=== PATIENT | female | born 1980 | race Caucasian/White ===

== ENCOUNTER → 2016-05-30 | Outpatient (CLI) | payer OTHER ==
--- NOTE | 2016-05-30 10:08 | US ---
Ultrasound of the Abdomen Limited History: R16.0, hepatomegaly. Two hepatic lesions on prior ultrasound. Comparison: Ultrasound March 2015. Findings: Gallbladder: No shadowing calculi, wall thickening, or pericholecystic fluid. Common bile duct is 2 m m in diameter which is normal. Liver: Liver measures 12 cm in length. Near the right lobe of the liver anterior segment, there is a 1.6 x 1.5 x 1.4 cm hyperechoic lesion which previously measured 1.5 x 1.4 x 1.4 cm demonstrating smo oth margins and stability. In the right lobe posterior segment more inferiorly, there is a second hyp erechoic smooth well-defined 1.1 x 0.9 x 0.9 cm lesion previously measuring 0.9 x 0.7 x 0.7 cm which demonstrates minimal if any change in size. Renal: Right kidney measures 9 x 5 x 5 cm without hydronephrosis. Pancreas: Homogeneous without peripancreatic fluid. Aorta: Visualized upper abdominal aorta demonstrates no aneurysm. Impression: 1. No cholelithiasis or biliary ductal dilation. 2. Two hyperechoic lesions in the right lobe of the liver measuring up to 1.6 cm in size without sign ificant interval change since March 2015 probably representing benign hemangiomata. 3. Recommend follow up ultrasound imaging in one year to ensure stability.
== END ==
LOC: CIMAGING 08:42
PROVIDERS: ATTEND Family Medicine
DX: R93.2 Abnormal findings on diagnostic imaging of liver and biliary tract (principal)
CPT/HCPCS: 76705-PO

== ENCOUNTER → 2018-01-07 | Outpatient (CLI) | payer OTHER | LOC: FIMAGING 11:05 | PROVIDERS: ATTEND Family Medicine | DX: M79.674 Pain in right toe(s) (principal); W55.12XA Struck by horse, initial encounter; Y93.K9 Activity, other involving animal care ==

== ENCOUNTER → 2018-08-20 | Outpatient (CLI) | payer OTHER | LOC: BMCIMAGING 12:43 | PROVIDERS: ATTEND Obstetrics & Gynecology Gynecology | DX: Z12.31 Encounter for screening mammogram for malignant neoplasm of breast (principal) ==